=== PATIENT | female | born 1965 | race Caucasian/White ===

== ENCOUNTER → 2017-05-20 18:32 | Outpatient (CLI) | payer BC ==
[2011-07-24 11:08] VITALS: BMI 32.8
== END | disposition home or self-care (01) ==
LOC: D.MAMMO 05-14 14:30
DX: Z12.31 Encounter for screening mammogram for malignant neoplasm of breast (principal)

== ENCOUNTER 2018-11-18 19:00 | Outpatient (CLI) | payer BC | END 2018-11-18 23:59 | disposition home or self-care (01) | LOC: D.MAMMO 19:00 | DX: Z12.31 Encounter for screening mammogram for malignant neoplasm of breast (principal) ==

== ENCOUNTER 2020-05-08 18:00 | Outpatient (CLI) | payer BC ==
[2011-07-24 11:08] VITALS: BMI 32.8
== END 2020-05-08 23:59 | disposition home or self-care (01) ==
LOC: D.MAMMO 18:00
PROVIDERS: ATTEND Obstetrics & Gynecology
DX: Z12.31 Encounter for screening mammogram for malignant neoplasm of breast (principal)